=== PATIENT | female | born 1940 | race Caucasian/White ===

== ENCOUNTER 2016-12-23 19:42 | Emergency (ER) | payer OTHER ==
[~2016-12-23] VITALS: Ht 147.3 cm; Wt 66.3 kg
[~2016-12-23 19:42] MED LIST: B-COMPLEX W/VI1 EAC1 PO; CALCIUM 600 +1 EAC3 PO; IRON18 MG PO; METOPROLOL SUCC25 MG PO; PERCOCET 5/31 TABLET PO; PRAVASTATIN SOD40 MG PO; ROPINIROLE HCL4 MG PO; VITAMIN D32000 UNI1 PO
[2016-12-23 20:48] LABS: HEMATOCRIT 35.7 % (36.0-46.0); MCH 32.1 PG (29.0-34.0); MCHC 33.9 G/DL (30.0-36.0); MCV 94.7 FL (83-99); MEAN PLAT.VOLUME 9.5 uM^3 (9.5-12.4); PLATELET COUNT 223 K/uL (156-360); RBC DIS.WIDTH-CV 13.4 % (11.8-14.6); RBC DIS.WIDTH-SD 46.7 % (39-53); RED BLOOD COUNT 3.77 M/uL (3.80-5.20); WHITE BLOOD COUNT 4.5 K/uL (4.1-10.2)
[2016-12-23 21:19] VITALS: BP 139/67
== END 2016-12-23 21:20 | disposition home or self-care (01) ==
LOC: EME → EDBD 19:42 → EME 19:42
PROVIDERS: Emergency Medicine
DX: G62.9 Polyneuropathy, unspecified (principal); I10 Essential (primary) hypertension; E78.5 Hyperlipidemia, unspecified; G25.81 Restless legs syndrome; Z87.891 Personal history of nicotine dependence; Z88.0 Allergy status to penicillin
CPT/HCPCS: 80048; 84484; 85027; 99281; 99284

== ENCOUNTER 2017-07-01 08:48 | Inpatient (IN) | payer OTHER ==
[~2017-07-01] VITALS: Ht 144.8 cm; Wt 59.8 kg
[~2017-07-01 08:48] MED LIST changes: -B-COMPLEX W/VI1 EAC1 PO; +CYANOCOBALAM1000 MCG PO; -IRON18 MG PO; +IRON325 M1 PO; +VITAMIN D31000 UNIT PO; -VITAMIN D32000 UNI1 PO
[2017-07-01 09:20] LABS: BASOPHIL (%) 0.8 % (0-1); EOSINOPHIL (%) 4.4 % (0-5); EOSINOPHIL COUNT 0.2 K/uL (0-0.3); HEMATOCRIT 38.4 % (36.0-46.0); HEMOGLOBIN 13.4 G/DL (11.9-15.5); IMMATURE GRANULOCYTE (%) 0.5 % (0.0-0.7); LYMPHOCYTE (%) 25.6 % (15-42); MCHC 34.9 G/DL (30.0-36.0); MCV 97.5 FL (83-99); MONOCYTE (%) 11.5 % (3-12); MONOCYTE COUNT 0.5 K/uL (0-0.8); NEUTROPHIL (%) 57.2 % (45-76); NEUTROPHIL COUNT 2.2 K/uL (1.8-6.4); PLATELET COUNT 235 K/uL (156-360); RBC DIS.WIDTH-CV 12.8 % (11.8-14.6); RBC DIS.WIDTH-SD 46.7 % (39-53); RED BLOOD COUNT 3.94 M/uL (3.80-5.20); WHITE BLOOD COUNT 3.9 K/uL (4.1-10.2)
[2017-07-01 09:29] LABS: PTT 27.6 SEC (25-37)
[2017-07-01 09:31] LABS: AMYLASE 30 IU/L (1-118); CHLORIDE 101 mEq/L (99-109); POTASSIUM 4.9 mEq/L (3.7-5.4); SODIUM 138 mEq/L (136-147)
[2017-07-01 09:32] LABS: GLUCOSE 115 mg/dL (70-99)
[2017-07-01 09:36] LABS: CREATININE 0.8 mg/dL (0.6-1.3); GFR ESTIMATE (CALCULATED) > 59 mL/min/; SERUM ETHYL ALCOHOL < 10 mg/dL
[2017-07-01 09:37] LABS: UREA NITROGEN (BUN) 11 mg/dL (9-23)
[2017-07-01 09:39] LABS: LIPASE 20 U/L (1.0-51.0)
[2017-07-01 09:41] LABS: TROP-I INTERPRETATION NEGATIVE; TROPONIN-I < 0.01 ng/mL (0.0-0.30)
[2017-07-01 12:22] LABS: APPEARANCE CLEAR ((CLEAR)); BILIRUBIN NEGATIVE; BLOOD NEGATIVE; COLOR STRAW ((YELLOW)); GLUCOSE (STRIP) NEGATIVE; KETONES NEGATIVE; LEUKOCYTES NEGATIVE; NITRITE NEGATIVE; PROTEIN (STRIP) NEGATIVE; SPECIFIC GRAVITY 1.026 (1.000-1.030); UCUL ADDED? NO; UROBILINOGEN 0.2 MG/DL (0.2-1.0)
[2017-07-01 12:35] LABS: AMPHETAMINE NEGATIVE (500 ng/mL); BARBITURATES NEGATIVE (200 ng/mL); BENZODIAZEPINES NEGATIVE (150 ng/mL); BUPRENORPHINE NEGATIVE (10 ng/mL); COCAINE NEGATIVE (150 ng/mL); METHADONE NEGATIVE (200 ng/mL); METHAMPHETAMINE NEGATIVE (500 ng/mL); OPIATES (MORPHINE) NEGATIVE (100 ng/mL); OXYCODONE NEGATIVE (100 ng/mL); PHENCYCLIDINE NEGATIVE (25 ng/mL); PROPOXYPHENE NEGATIVE (300 ng/mL); THC CANNABINOIDS NEGATIVE (50 ng/mL); TRICYCLIC ANTIDEPRESSANTS NEGATIVE (300 ng/mL)
[2017-07-01 13:34] LABS: HEMATOCRIT 37.7 % (36.0-46.0); HEMOGLOBIN 13.1 G/DL (11.9-15.5); MCH 33.8 PG (29.0-34.0); MCHC 34.7 G/DL (30.0-36.0); MCV 97.2 FL (83-99); PLATELET COUNT 240 K/uL (156-360); RBC DIS.WIDTH-CV 12.9 % (11.8-14.6); RED BLOOD COUNT 3.88 M/uL (3.80-5.20); WHITE BLOOD COUNT 4.8 K/uL (4.1-10.2)
[2017-07-01 13:36] LABS: HDL CHOLESTEROL 85 MG/DL (Desirable>=50); NON-HDL CHOLESTEROL 156 mg/dL (Desirable<160); TOTAL CHOLESTEROL 241 mg/dL (Desirable<200)
[2017-07-01] MEDS ORDERED: ALENDRONATE SOD70 MG PO (14:01)
[2017-07-01] MEDS ORDERED: LEVOTHYROXINE25 MCG PO (14:03)
[2017-07-01 14:45] LABS: HEMOGLOBIN A1c (GLYCOHEMOGLOB) 5.5 % (Below 5.7)
[2017-07-01 17:09] VITALS: BP 137/65
[2017-07-01 20:26] VITALS: BP 137/72
[2017-07-01 20:45] LABS: LDL CHOLESTEROL 137 mg/dL (Desirable<100); TRIGLYCERIDES 93 MG/DL (Normal: <150)
[2017-07-02 00:17] VITALS: BP 132/71
[2017-07-02 04:00] VITALS: BP 141/69
[2017-07-02 08:10] VITALS: BP 162/73
[2017-07-02 15:52] VITALS: BP 138/72
[2017-07-02 19:30] VITALS: BP 125/66
[2017-07-02 23:59] VITALS: BP 118/60
[2017-07-03 03:46] VITALS: BP 110/57
[2017-07-03 07:41] VITALS: BP 131/66
[2017-07-03] MEDS ORDERED: ASPIR-LOW81 MG PO (10:16)
[2017-07-03] MEDS ORDERED: CLOPIDOGREL75 MG PO (10:16)
[2017-07-03] MEDS ORDERED: ATORVASTATIN CA40 MG PO (10:16)
[2017-07-03 12:02] VITALS: BP 117/57
== END 2017-07-03 13:45 | disposition home health service (06) | DRG 66 ==
LOC: EME 08:48 → EDOF 12:26 → ENRESERV 12:27 → EDOF 13:00 → ENRESERV 15:14 → 5SOUTH 16:38 → ENPENDDIS 07-03 13:13 → 5SOUTH 07-03 13:45
PROVIDERS: Emergency Medicine; Hospitalist
DX: I63.412 Cerebral infarction due to embolism of left middle cerebral artery (principal); R47.01 Aphasia; R29.701 NIHSS score 1; I10 Essential (primary) hypertension; E78.5 Hyperlipidemia, unspecified; G25.81 Restless legs syndrome; Z66 Do not resuscitate; Z87.891 Personal history of nicotine dependence; Z87.442 Personal history of urinary calculi; Z88.0 Allergy status to penicillin
CPT/HCPCS: 70450; 70496; 70498; 70551; 80048; 80061; 81003; 82150; 83036; 83690; 84484; 85025; 85027; 85610; 85730; 86850; 86900; 86901; 92523 GN; 93005; 93306; 99281; 99285; G0480; J1644; J2060; J7030